=== PATIENT | male | born 1960 | race Caucasian/White ===

== ENCOUNTER → 2017-03-26 | Outpatient (CLI) | payer MEDICAID ==
[~2017-03-26] MED LIST: ASPI-650 PO; ATOR10TA PO; ATOR20TA PO; GABA300C10 PO; IBUP-1484 PO; NAPR220C2 PO; OMEP20TA62 PO; SIMV20TA3 PO; TRAM50TA2 PO
== END | disposition home or self-care (01) ==
LOC: CFH 09:55
PROVIDERS: ATTEND Neurological Surgery
DX: M48.06 Spinal stenosis, lumbar region (principal); M51.36 Other intervertebral disc degeneration, lumbar region; M51.26 Other intervertebral disc displacement, lumbar region; M51.46 Schmorl's nodes, lumbar region; G96.19 Other disorders of meninges, not elsewhere classified
CPT/HCPCS: 72148

== ENCOUNTER 2017-12-14 08:59 | Emergency (ER) | payer SELFPAY ==
[~2017-12-14] VITALS: Ht 167.6 cm; Wt 85.8 kg
[2017-12-14] MEDS ORDERED: ASPI-650 PO (09:32)
[2017-12-14] MEDS ORDERED: GABA600T2 PO (09:33)
[2017-12-14 10:19] VITALS: BP 124/88
== END 2017-12-14 10:25 | disposition home or self-care (01) ==
LOC: ED 09:45
DX: S16.1XXA Strain of muscle, fascia and tendon at neck level, initial encounter (principal); M54.12 Radiculopathy, cervical region; I10 Essential (primary) hypertension; I25.2 Old myocardial infarction; E78.5 Hyperlipidemia, unspecified; I25.10 Atherosclerotic heart disease of native coronary artery without angina pectoris; G89.29 Other chronic pain; M54.9 Dorsalgia, unspecified; S29.012A Strain of muscle and tendon of back wall of thorax, initial encounter; X58.XXXA Exposure to other specified factors, initial encounter; Y93.89 Activity, other specified; Y99.8 Other external cause status; Y92.89 Other specified places as the place of occurrence of the external cause
CPT/HCPCS: 93005; 99283; J7512

== ENCOUNTER 2018-02-11 18:07 | Emergency (ER) | payer MEDICAID, OTHER ==
[~2018-02-11] VITALS: Ht 165.1 cm; Wt 83.4 kg
[~2018-02-11 18:07] MED LIST changes: +GABA600T2 PO
[2018-02-11 18:22] VITALS: BP 152/98
[2018-02-11] MEDS ORDERED: METHOCARBAMOL 750 MG TABLET ONE (18:30)
[2018-02-11] MEDS ORDERED: KETOROLAC 30 MG/1 ML ONE (18:30)
[2018-02-11] MEDS ORDERED: KETOROLAC 30 MG/1 ML IM ONE (18:30)
[2018-02-11] MEDS ORDERED: METHOCARBAMOL 750 MG TABLET PO ONE (18:30)
== END 2018-02-11 20:02 | disposition home or self-care (01) ==
LOC: ED 19:50
DX: S16.1XXA Strain of muscle, fascia and tendon at neck level, initial encounter (principal); I10 Essential (primary) hypertension; E78.5 Hyperlipidemia, unspecified; I25.2 Old myocardial infarction; I25.10 Atherosclerotic heart disease of native coronary artery without angina pectoris; E78.00 Pure hypercholesterolemia, unspecified; X58.XXXA Exposure to other specified factors, initial encounter; Y93.89 Activity, other specified; Y92.89 Other specified places as the place of occurrence of the external cause; Y99.8 Other external cause status
CPT/HCPCS: 96372; 99283; J1885

== ENCOUNTER 2018-05-29 21:06 | Emergency (ER) | payer MEDICAID ==
[~2018-05-29] VITALS: Ht 170.2 cm; Wt 81.3 kg
[2018-05-29 22:43] LABS: BASOPHILS # (AUTO) 0.02 x10^3/uL (0-0.1); BASOPHILS % (AUTO) 1 % (0-1); EOSINOPHILS # (AUTO) 0.14 x10^3/uL (0-0.4); EOSINOPHILS % (AUTO) 3 % (1-7); LYMPHOCYTES # (AUTO) 1.53 x10^3/uL (1-3.4); LYMPHOCYTES % (AUTO) 38 % (22-44); MD NO; MEAN CORPUSCULAR HGB CONC 34.4 g/dL (33.2-36.2); MEAN CORPUSCULAR VOLUME 84.2 fL (81-97); MONOCYTES # (AUTO) 0.44 x10^3/uL (0.2-0.8); MONOCYTES % (AUTO) 11 % (2-9); NEUTROPHILS # (AUTO) 1.88 x10^3/uL (1.8-6.8); NEUTROPHILS % (AUTO) 47 % (42-75); PLATELET COUNT 217 x10^3/uL (130-400); RED BLOOD COUNT 4.59 x10^6/uL (4.38-5.82)
[2018-05-29 22:56] LABS: ALANINE AMINOTRANSFERASE 40 U/L (12-78); ALBUMIN 3.6 g/dL (3.4-5.0); ANION GAP 9 mmol/L (5-15); CALCIUM 8.5 mg/dL (8.5-10.1); CHLORIDE 106 mmol/L (98-107); CREATININE 1.04 mg/dL (0.7-1.3)
[2018-05-29 23:00] LABS: ALKALINE PHOSPHATASE 81 U/L (45-117); BILIRUBIN,TOTAL 0.3 mg/dL (0.2-1.0); TOTAL PROTEIN 7.3 g/dL (6.4-8.2); TROPONIN I < 0.015 ng/mL (0.000-0.045)
[2018-05-29 23:26] LABS: RAPID INFLUENZA A Negative (Negative); RAPID INFLUENZA B Negative (Negative)
[2018-05-29 23:47] VITALS: BP 154/88
== END 2018-05-29 23:48 | disposition home or self-care (01) ==
LOC: ED 22:26
DX: J20.9 Acute bronchitis, unspecified (principal); B34.9 Viral infection, unspecified; I10 Essential (primary) hypertension; E78.5 Hyperlipidemia, unspecified; I25.2 Old myocardial infarction; I25.10 Atherosclerotic heart disease of native coronary artery without angina pectoris
CPT/HCPCS: 36415; 71046; 80053; 83880; 84484; 85025; 87400; 93005; 99285

== ENCOUNTER 2018-12-20 09:59 | Emergency (ER) | payer MEDICAID ==
[~2018-12-20] VITALS: Ht 170.2 cm; Wt 84.4 kg
[~2018-12-20 09:59] MED LIST changes: -GABA600T2 PO; +GABA600T7 PO
--- NOTE | 2018-12-20 10:19 | NUR ---
PT TO ROOM FROM [facility], 58 YR OLD MALE HERE WITH C/O "I THINK IT IS PROBABLY THE BLOOD PRESSURE MEDICINE, I HAVE A DRY COUGH, BEGAN ABOUT SUNDAY AFTERNOON." STARTED ON LISINOPRIL ON SUNDAY. NO ACUTE DITRESS NOTED
[2018-12-20] MEDS ORDERED: LISI5TAB7 PO (10:29)
[2018-12-20] MEDS ORDERED: TRAZ-137 PO (10:29)
[2018-12-20] MEDS ORDERED: CHOLESTEROL MED PO (10:30)
--- NOTE | 2018-12-20 10:52 | NUR ---
REPORT TO CHANI DIAS
--- NOTE | 2018-12-20 10:52 | NUR ---
BEDSIDE REPORT FROM HOSSEIN RN, PT TO XRAY
[2018-12-20 11:32] LABS: BASOPHILS # (AUTO) 0.01 x10^3/uL (0-0.1); BASOPHILS % (AUTO) 0 % (0-1); EOSINOPHILS # (AUTO) 0.02 x10^3/uL (0-0.4); EOSINOPHILS % (AUTO) 0 % (1-7); LYMPHOCYTES # (AUTO) 0.85 x10^3/uL (1-3.4); LYMPHOCYTES % (AUTO) 16 % (22-44); MD NO; MEAN CORPUSCULAR HGB CONC 32.9 g/dL (33.2-36.2); MEAN CORPUSCULAR VOLUME 85.2 fL (81-97); MEAN PLATELET VOLUME 6.9 fL (7.4-10.4); MONOCYTES % (AUTO) 9 % (2-9); NEUTROPHILS # (AUTO) 4.03 x10^3/uL (1.8-6.8); NEUTROPHILS % (AUTO) 75 % (42-75); PLATELET COUNT 199 x10^3/uL (130-400); RED BLOOD COUNT 4.31 x10^6/uL (4.38-5.82); RED CELL DISTRIBUTION WIDTH 14.4 % (9.4-14.8)
[2018-12-20 11:42] LABS: ALANINE AMINOTRANSFERASE 30 U/L (12-78); ALBUMIN 3.6 g/dL (3.4-5.0); ANION GAP 6 mmol/L (5-15); CALCIUM 8.2 mg/dL (8.5-10.1); CHLORIDE 106 mmol/L (98-107); CREATININE 0.93 mg/dL (0.7-1.3)
[2018-12-20 11:46] LABS: ALKALINE PHOSPHATASE 62 U/L (45-117); BILIRUBIN,TOTAL 0.2 mg/dL (0.2-1.0); TOTAL PROTEIN 6.7 g/dL (6.4-8.2); TROPONIN I < 0.015 ng/mL (0.000-0.045)
--- NOTE | 2018-12-20 12:04 | NUR ---
PT RESTING IN [facility], UP FOR RECHECK
[2018-12-20 12:05] VITALS: BP 135/78
== END 2018-12-20 12:32 | disposition home or self-care (01) ==
LOC: ED 11:22
DX: R07.89 Other chest pain (principal); T50.995A Adverse effect of other drugs, medicaments and biological substances, initial encounter; Y92.89 Other specified places as the place of occurrence of the external cause; E78.5 Hyperlipidemia, unspecified; I25.2 Old myocardial infarction; I25.10 Atherosclerotic heart disease of native coronary artery without angina pectoris; I10 Essential (primary) hypertension; Z88.5 Allergy status to narcotic agent; Z79.899 Other long term (current) drug therapy
CPT/HCPCS: 36415; 71046; 80053; 84484; 85025; 93005; 99284

== ENCOUNTER 2019-08-07 10:29 | Emergency (ER) | payer SELFPAY ==
[~2019-08-07] VITALS: Ht 167.6 cm; Wt 83.6 kg
[~2019-08-07 10:29] MED LIST changes: +CHOLESTEROL MED PO; -IBUP-1484 PO; +IBUP-1902 PO; +LISI5TAB7 PO; +TRAZ-137 PO
--- NOTE | 2019-08-07 10:55 | NUR ---
PT C/O FEELING TRANSIENT WEAKNESS AND CONFUSION SINCE YESTERDAY. STATES "I'M JUST NOT RIGHT". HX HTN, UNMEDICATED AT THIS TIME. 157/86 IN ROOM.
[2019-08-07] MEDS ORDERED: SODIUM CHLORIDE FLUSH 10ML SYR IVF ONE (11:30)
[2019-08-07] MEDS ORDERED: PROCHLORPERAZINE 5 MG/ML, 2ML IVPush ONE (11:30)
[2019-08-07] MEDS ORDERED: SODIUM CHLORIDE 0.9% 1,000ML IVBOLUS ONE (11:30)
[2019-08-07] MEDS ORDERED: DIPHENHYDRAMINE 50 MG/ML, 1ML IVPush ONE (11:30)
[2019-08-07] MEDS ORDERED: PROCHLORPERAZINE 5 MG/ML, 2ML ONE (11:37)
[2019-08-07] MEDS ORDERED: DIPHENHYDRAMINE 50 MG/ML, 1ML ONE (11:37)
[2019-08-07 11:46] LABS: BASOPHILS # (AUTO) 0.03 x10^3/uL (0-0.1); BASOPHILS % (AUTO) 1 % (0-1); EOSINOPHILS # (AUTO) 0.22 x10^3/uL (0-0.4); EOSINOPHILS % (AUTO) 6 % (1-7); LYMPHOCYTES # (AUTO) 1.08 x10^3/uL (1-3.4); LYMPHOCYTES % (AUTO) 29 % (22-44); MD NO; MEAN CORPUSCULAR HEMOGLOBIN 29.3 pg (27.5-34.5); MEAN CORPUSCULAR HGB CONC 33.9 g/dL (33.2-36.2); MEAN CORPUSCULAR VOLUME 86.6 fL (81-97); MONOCYTES # (AUTO) 0.36 x10^3/uL (0.2-0.8); MONOCYTES % (AUTO) 10 % (2-9); NEUTROPHILS # (AUTO) 2.04 x10^3/uL (1.8-6.8); NEUTROPHILS % (AUTO) 55 % (42-75); PLATELET COUNT 217 x10^3/uL (130-400); RED BLOOD COUNT 4.78 x10^6/uL (4.38-5.82); RED CELL DISTRIBUTION WIDTH 13.5 % (9.4-14.8)
[2019-08-07 11:58] LABS: ALANINE AMINOTRANSFERASE 23 U/L (12-78); ALBUMIN 3.7 g/dL (3.4-5.0); ANION GAP 5 mmol/L (5-15); CALCIUM 8.4 mg/dL (8.5-10.1); CHLORIDE 108 mmol/L (98-107)
[2019-08-07 12:01] LABS: ALKALINE PHOSPHATASE 70 U/L (45-117); BILIRUBIN,TOTAL 0.8 mg/dL (0.2-1.0); CREATININE 1.01 mg/dL (0.7-1.3)
[2019-08-07 12:34] VITALS: BP 124/87
[2019-08-07] MEDS ORDERED: GADOTERATE 10 MMOL/20 ML SYR ONE (12:57)
== END 2019-08-07 13:57 | disposition home or self-care (01) ==
LOC: ED 13:43
DX: R51 Headache (principal); I10 Essential (primary) hypertension; G89.29 Other chronic pain; I25.10 Atherosclerotic heart disease of native coronary artery without angina pectoris; I25.2 Old myocardial infarction; E78.5 Hyperlipidemia, unspecified; Z87.891 Personal history of nicotine dependence
CPT/HCPCS: 36415; 70544; 70553; 80053; 85025; 93005; 96374; 96375; 99284; A9575; J0780; J1200; J7030

== ENCOUNTER 2019-12-28 13:34 | Emergency (ER) | payer MEDICAID ==
[~2019-12-28] VITALS: Ht 170.2 cm; Wt 84.1 kg
[~2019-12-28 13:34] MED LIST changes: +SIMV20TA19 PO; -SIMV20TA3 PO; -TRAZ-137 PO; +TRAZ-175 PO
--- NOTE | 2019-12-28 13:46 | NUR ---
PATIENT ARRIVES TO ER WITH CHEST PAIN THAT IS SUBSTERNAL AND RADIATES TOWARD LATERAL LEFT RIBCAGE. THE PAIN HAS BEEN ON AND OFF FOR LAST FEW WEEKS.
[2019-12-28] MEDS ORDERED: SIMV40TA20 PO (13:51)
[2019-12-28] MEDS ORDERED: MIRT15TA94 PO (13:51)
[2019-12-28 14:30] LABS: BASOPHILS # (AUTO) 0.03 x10^3/uL (0-0.1); BASOPHILS % (AUTO) 1 % (0-1); EOSINOPHILS # (AUTO) 0.24 x10^3/uL (0-0.4); EOSINOPHILS % (AUTO) 6 % (1-7); LYMPHOCYTES # (AUTO) 1.24 x10^3/uL (1-3.4); LYMPHOCYTES % (AUTO) 28 % (22-44); MD NO; MEAN CORPUSCULAR HEMOGLOBIN 29.8 pg (27.5-34.5); MEAN CORPUSCULAR HGB CONC 34.2 g/dL (33.2-36.2); MEAN CORPUSCULAR VOLUME 87.3 fL (81-97); MEAN PLATELET VOLUME 7.1 fL (7.4-10.4); MONOCYTES # (AUTO) 0.37 x10^3/uL (0.2-0.8); MONOCYTES % (AUTO) 8 % (2-9); NEUTROPHILS # (AUTO) 2.57 x10^3/uL (1.8-6.8); NEUTROPHILS % (AUTO) 58 % (42-75); PLATELET COUNT 222 x10^3/uL (130-400); RED BLOOD COUNT 4.62 x10^6/uL (4.38-5.82); RED CELL DISTRIBUTION WIDTH 14.1 % (9.4-14.8)
[2019-12-28 14:37] LABS: ALANINE AMINOTRANSFERASE 24 U/L (12-78); ALBUMIN 4.1 g/dL (3.4-5.0); ANION GAP 6 mmol/L (5-15); CALCIUM 8.6 mg/dL (8.5-10.1); CHLORIDE 109 mmol/L (98-107); CREATININE 1.05 mg/dL (0.7-1.3)
[2019-12-28 14:41] LABS: ALKALINE PHOSPHATASE 58 U/L (45-117); BILIRUBIN,TOTAL 0.4 mg/dL (0.2-1.0); TOTAL PROTEIN 7.4 g/dL (6.4-8.2); TROPONIN I < 0.015 ng/mL (0.000-0.045)
[2019-12-28 15:16] VITALS: BP 122/78
== END 2019-12-28 15:22 | disposition home or self-care (01) ==
LOC: ED 15:11
DX: R00.2 Palpitations (principal); R42 Dizziness and giddiness; I11.9 Hypertensive heart disease without heart failure; R07.9 Chest pain, unspecified; I25.10 Atherosclerotic heart disease of native coronary artery without angina pectoris; I25.2 Old myocardial infarction; E78.5 Hyperlipidemia, unspecified
CPT/HCPCS: 36415; 71045; 80053; 84484; 85025; 93005; 99285

== ENCOUNTER → 2020-03-25 | Outpatient (CLI) | payer MEDICAID ==
[~2020-03-25] MED LIST changes: +MIRT15TA94 PO; +SIMV40TA20 PO
== END | disposition home or self-care (01) ==
LOC: CFH 07:24
PROVIDERS: ATTEND Internal Medicine Cardiovascular Disease
DX: I34.0 Nonrheumatic mitral (valve) insufficiency (principal); I25.10 Atherosclerotic heart disease of native coronary artery without angina pectoris; I10 Essential (primary) hypertension
CPT/HCPCS: 78452; 93017; 93306; A9502

== ENCOUNTER → 2020-09-13 | Outpatient (CLI) | payer MEDICAID ==
[~2020-09-13] MED LIST changes: +ASPI-1026 PO; -ASPI-650 PO; +ASPI325T20 PO
== END | disposition home or self-care (01) ==
LOC: CVU 08:15
PROVIDERS: ATTEND Internal Medicine Cardiovascular Disease
DX: I65.23 Occlusion and stenosis of bilateral carotid arteries (principal)
CPT/HCPCS: 93880

== ENCOUNTER → 2020-10-14 | Outpatient (CLI) | payer MEDICAID ==
[~2020-10-14] MED LIST changes: +LOSA100T14 PO; +OMEP-110 PO; +ROSU20TA2 PO; +[UNRECOGNIZED DRUG - OTHER] PO
[2020-10-14 10:01] LABS: BASOPHILS % (AUTO) 1 % (0-1); EOSINOPHILS % (AUTO) 7 % (1-7); LYMPHOCYTES % (AUTO) 29 % (22-44); MEAN CORPUSCULAR HEMOGLOBIN 29.9 pg (27.5-34.5); MEAN CORPUSCULAR HGB CONC 34.7 g/dL (33.2-36.2); MEAN PLATELET VOLUME 7.1 fL (7.4-10.4); MONOCYTES % (AUTO) 9 % (2-9); NEUTROPHILS % (AUTO) 55 % (42-75); PLATELET COUNT 195 x10^3/uL (130-400); RED BLOOD COUNT 4.33 x10^6/uL (4.38-5.82); RED CELL DISTRIBUTION WIDTH 13.3 % (9.4-14.8)
[2020-10-14 10:02] LABS: ALBUMIN 3.9 g/dL (3.4-5.0); CALCIUM 8.6 mg/dL (8.5-10.1); CHLORIDE 106 mmol/L (98-107); MD NO
[2020-10-14 10:06] LABS: ALANINE AMINOTRANSFERASE 31 U/L (12-78); ALKALINE PHOSPHATASE 57 U/L (45-117); BILIRUBIN,TOTAL 0.3 mg/dL (0.2-1.0); CREATININE 1.01 mg/dL (0.7-1.3); TOTAL PROTEIN 7.2 g/dL (6.4-8.2)
[2020-10-14 10:11] LABS: ANION GAP 4 mmol/L (5-15)
== END | disposition home or self-care (01) ==
LOC: STAR 08:16
PROVIDERS: ATTEND Surgery
DX: Z01.818 Encounter for other preprocedural examination (principal); I51.7 Cardiomegaly; Z20.822 Contact with and (suspected) exposure to COVID-19
CPT/HCPCS: 36415; 71046; 80053; 85025; 93005; U0003

== ENCOUNTER 2020-10-20 06:56 | Inpatient (IN) | payer MEDICAID ==
[~2020-10-20] VITALS: Ht 167.6 cm; Wt 82.2 kg
[2020-10-20 07:28] VITALS: BP 164/94
[2020-10-20] MEDS ORDERED: LACTATED RINGERS 1,000 ML IV SCH (07:30)
[2020-10-20] MEDS ORDERED: CHLORHEXIDINE 15 ML UDC PO ONE (07:30)
[2020-10-20] MEDS ORDERED: BUPIVACAINE/PF 0.5% ONE (08:59)
[2020-10-20] MEDS ORDERED: HEPARIN 1,000 UNITS/ML, 10ML ONE (09:00)
[2020-10-20] MEDS ORDERED: THROMBIN 20,000 UNIT VIAL TP ONE (09:00)
[2020-10-20] MEDS ORDERED: EPINEPHRINE 1 MG/ML, 1ML ONE (09:00)
[2020-10-20] MEDS ORDERED: LIDOCAINE/PF 1%, 30ML ONE (09:00)
[2020-10-20] MEDS ORDERED: BACITRACIN 50,000 UNIT ONE (09:00)
[2020-10-20] MEDS ORDERED: PROTAMINE SULFATE 10 MG/ML, 25ML ONE (09:00)
[2020-10-20] MEDS ORDERED: FENTANYL PF 250 MCG/5ML ONE (09:55)
[2020-10-20] MEDS ORDERED: MIDAZOLAM 1 MG/ML, 2ML ONE (09:55)
[2020-10-20] MEDS ORDERED: EPHEDRINE 50 MG/ML, 1ML ONE ×2 (10:16→12:52)
[2020-10-20] MEDS ORDERED: hydrALAzine 20 MG/ML, 1ML IV PRN (11:00)
[2020-10-20] MEDS ORDERED: DIPHENHYDRAMINE 50 MG/ML, 1ML IVPush PRN (11:00)
[2020-10-20] MEDS ORDERED: ACETAMINOPHEN 325 MG TABLET PO PRN (11:00)
[2020-10-20] MEDS ORDERED: PROMETHAZINE 25 MG/ML, 1ML IVPush PRN (11:00)
[2020-10-20] MEDS ORDERED: ONDANSETRON 2MG/ML, 2ML IVPush PRN ×2 (11:00→13:00)
[2020-10-20] MEDS ORDERED: DIAZEPAM 5 MG/ML, 2ML IVPush PRN (11:00)
[2020-10-20] MEDS ORDERED: LABETALOL 5MG/ML, 20ML IV PRN (11:00)
[2020-10-20] MEDS ORDERED: METOPROLOL 1 MG/ML, 5ML IV PRN (11:00)
[2020-10-20] MEDS ORDERED: MEPERIDINE/PF 25MG/0.5ML IVPush PRN (11:00)
[2020-10-20] MEDS ORDERED: OXYcodone 5 MG/5 ML ORAL.SOL UDC PO PRN (11:00)
[2020-10-20] MEDS ORDERED: HYDROmorphone 1 MG/ML, 1ML INJ IVPush PRN (11:00)
[2020-10-20] MEDS ORDERED: PROPOFOL 10 MG/ML, 20ML ONE (12:13)
[2020-10-20] MEDS ORDERED: ONDANSETRON 2MG/ML, 2ML ONE (12:13)
[2020-10-20] MEDS ORDERED: CEFAZOLIN 1,000 MG ONE ×2 (12:13)
[2020-10-20] MEDS ORDERED: LIDOCAINE-MPF 2% ,5ML ONE (12:13)
[2020-10-20] MEDS ORDERED: ROCURONIUM 10MG/ML,5ML ONE ×2 (12:13)
[2020-10-20] MEDS ORDERED: GLYCOPYRROLATE 0.2MG/1ML, 5ML ONE (12:13)
[2020-10-20] MEDS ORDERED: NEOSTIGMINE 1 MG/ML, 10ML ONE (12:13)
[2020-10-20] MEDS ORDERED: MEPERIDINE/PF 25MG/ML,1ML ONE (12:52)
[2020-10-20] MEDS: LOSARTAN 100 MG TAB PO SCH (13:00)
[2020-10-20] MEDS ORDERED: OMEPRAZOLE 20 MG CAPSULE.DR PO SCH (13:00)
[2020-10-20] MEDS ORDERED: HYDROcodone/APAP 5/325 TABLET PO PRN (13:00)
[2020-10-20] MEDS: LACTATED RINGERS 1,000 ML IV SCH (13:00)
[2020-10-20] MEDS: PHENYLEPHRINE IV PRN (13:20)
[2020-10-20] MEDS: DEXTROSE 5% IV PRN (13:20)
[2020-10-20] MEDS ORDERED: FENTANYL PF 100 MCG/2ML ONE (13:36)
[2020-10-20] MEDS: FENTANYL PF 100 MCG/2ML IV PRN ×2 (13:38→13:52)
[2020-10-20] MEDS ORDERED: ACETAMINOPHEN 650 MG/20.3 ML UDC ONE (13:48)
[2020-10-20] MEDS ORDERED: OXYcodone 5 MG/5 ML ORAL.SOL UDC ONE (13:48)
[2020-10-20] MEDS ORDERED: ATROPINE SYRINGE 0.1 MG/ML, 10ML IVPush ONE (16:30)
[2020-10-20] MEDS ORDERED: ATROPINE SYRINGE 0.1 MG/ML, 10ML ONE (16:38)
[2020-10-20] MEDS: CEFAZOLIN PMX 2GM/50ML 50 ML IVPB SCH (19:38)
[2020-10-20] MEDS: LISINOPRIL 20 MG TABLET PO SCH (21:00)
[2020-10-20] MEDS ORDERED: ATORVASTATIN 80 MG TABLET PO SCH ×2 (21:00→21:13)
[2020-10-20] MEDS ORDERED: OXYcodone IR 5MG TABLET ONE (21:05)
[2020-10-20] MEDS: OXYcodone IR 5MG TABLET PO PRN (21:15)
[2020-10-21] MEDS: ACETAMINOPHEN 325 MG TABLET PO PRN ×3 (01:29→16:33)
[2020-10-21] MEDS: LACTATED RINGERS 1,000 ML IV SCH ×2 (03:32→15:40)
[2020-10-21] MEDS: CEFAZOLIN PMX 2GM/50ML 50 ML IVPB SCH (03:32)
[2020-10-21] MEDS: OXYcodone IR 5MG TABLET PO PRN ×3 (03:34→20:41)
[2020-10-21] MEDS: OMEPRAZOLE 20 MG CAPSULE.DR PO SCH (06:29)
[2020-10-21] MEDS: LOSARTAN 100 MG TAB PO SCH (07:17)
[2020-10-21] MEDS: ASPIRIN 81 MG TABLET EC PO SCH (07:57)
[2020-10-21] MEDS: ENOXAPARIN 40 MG/0.4 ML SQ SCH (07:57)
[2020-10-21] MEDS: DEXTROSE 5% IV PRN (08:00)
[2020-10-21] MEDS: PHENYLEPHRINE IV PRN (08:00)
[2020-10-21] MEDS ORDERED: [UNRECOGNIZED DRUG - OTHER] PO SCH (09:00)
[2020-10-21] MEDS: LISINOPRIL 20 MG TABLET PO SCH (20:28)
[2020-10-22] MEDS: OXYcodone IR 5MG TABLET PO PRN (02:37)
[2020-10-22 04:29] LABS: BASOPHILS % (AUTO) 1 % (0-1); EOSINOPHILS % (AUTO) 5 % (1-7); LYMPHOCYTES % (AUTO) 27 % (22-44); MEAN CORPUSCULAR HEMOGLOBIN 30.2 pg (27.5-34.5); MEAN PLATELET VOLUME 6.9 fL (7.4-10.4); MONOCYTES % (AUTO) 10 % (2-9); NEUTROPHILS % (AUTO) 58 % (42-75); PLATELET COUNT 144 x10^3/uL (130-400); RED BLOOD COUNT 3.41 x10^6/uL (4.38-5.82); RED CELL DISTRIBUTION WIDTH 13.8 % (9.4-14.8)
[2020-10-22 04:32] LABS: MD NO
[2020-10-22 04:38] LABS: ANION GAP 3 mmol/L (5-15); CALCIUM 7.9 mg/dL (8.5-10.1); CHLORIDE 109 mmol/L (98-107); CREATININE 0.82 mg/dL (0.7-1.3)
[2020-10-22] MEDS: LACTATED RINGERS 1,000 ML IV SCH (04:38)
[2020-10-22 04:39] LABS: CREATININE 0.83 mg/dL (0.7-1.3)
[2020-10-22] MEDS: OMEPRAZOLE 20 MG CAPSULE.DR PO SCH (05:50)
[2020-10-22] MEDS: ENOXAPARIN 40 MG/0.4 ML SQ SCH (07:35)
[2020-10-22] MEDS: ASPIRIN 81 MG TABLET EC PO SCH (07:36)
[2020-10-22] MEDS: LOSARTAN 100 MG TAB PO SCH (09:00)
[2020-10-22] MEDS ORDERED: HYDR-2214 PO (10:50)
== END 2020-10-22 12:10 | disposition home or self-care (01) | DRG 39 ==
LOC: ORIP 06:56 → CSU 14:23 → CCU 10-21 13:17 → DCLOUNGE 10-22 12:03
PROVIDERS: ADMIT Surgery; ATTEND Surgery
PROC: 03HY32Z Insertion of Monitoring Device into Upper Artery, Percutaneous Approach (ICD-10-PCS; 2020-10-20)
PROC: 03CK0ZZ Extirpation of Matter from Right Internal Carotid Artery, Open Approach (ICD-10-PCS; principal; 2020-10-20 10:00)
DX: I65.21 Occlusion and stenosis of right carotid artery (principal); R47.1 Dysarthria and anarthria; Z88.5 Allergy status to narcotic agent
CPT/HCPCS: 36415; J3490; S0020; 80048; 82565; 85025; 86850; 86900; 87081; C1729; G0378; J0171; J0461; J0690; J1644; J1650; J2175; J2250; J2405; J2704; J2710; J2720; J3010; J7060; C1781; J2370; J7120

== ENCOUNTER 2021-03-11 10:42 | Emergency (ER) | payer MEDICAID ==
[~2021-03-11] VITALS: Ht 167.6 cm; Wt 86.0 kg
[~2021-03-11 10:42] MED LIST changes: +HYDR-2214 PO
--- NOTE | 2021-03-11 12:47 | NUR ---
INTRAVENOUS THERAPY NURSE: PT TO ROOM FROM [facility]OBBY
[2021-03-11 13:37] LABS: BASOPHILS % (AUTO) 1 % (0-1); EOSINOPHILS % (AUTO) 5 % (1-7); LYMPHOCYTES % (AUTO) 19 % (22-44); MEAN CORPUSCULAR HEMOGLOBIN 27.8 pg (27.5-34.5); MEAN CORPUSCULAR HGB CONC 33.5 g/dL (33.2-36.2); MEAN PLATELET VOLUME 6.9 fL (7.4-10.4); MONOCYTES % (AUTO) 9 % (2-9); NEUTROPHILS % (AUTO) 66 % (42-75); PLATELET COUNT 222 x10^3/uL (130-400); RED BLOOD COUNT 4.72 x10^6/uL (4.38-5.82); RED CELL DISTRIBUTION WIDTH 15.1 % (9.4-14.8)
[2021-03-11 13:47] VITALS: BP 161/94
[2021-03-11 13:49] LABS: ANION GAP 9 mmol/L (5-15); CALCIUM 9.4 mg/dL (8.5-10.1); CHLORIDE 105 mmol/L (98-107)
[2021-03-11 13:57] LABS: CREATININE 0.88 mg/dL (0.7-1.3); TROPONIN I < 0.015 ng/mL (0.000-0.045)
[2021-03-11] MEDS ORDERED: OMNIPAQUE 350 MG/ML, 75ML BOTTLE ONE (15:42)
== END 2021-03-11 17:46 | disposition home or self-care (01) ==
LOC: ED 17:06
DX: J15.9 Unspecified bacterial pneumonia (principal); R06.00 Dyspnea, unspecified; R06.02 Shortness of breath; I10 Essential (primary) hypertension; I25.2 Old myocardial infarction; I25.10 Atherosclerotic heart disease of native coronary artery without angina pectoris; Z20.822 Contact with and (suspected) exposure to COVID-19
CPT/HCPCS: 36415; 71045; 71275; 80048; 82040; 83880; 84484; 85025; 85379; 93005; 99285; Q9967; U0003; U0005